=== PATIENT | male | born 1955 | race Caucasian/White ===

== ENCOUNTER → 2018-08-14 | Outpatient (CLI) | payer OTHER ==
[~2018-08-14] MED LIST: ALBUTEROL SULFATE 2.5 MG/3 ML NEBU. NEB ONE
--- NOTE | 2018-08-14 14:10 | RAD ---
Chest, 2 views, 08/14/2018: HISTORY: Shortness of breath, weakness There has been a previous median sternotomy. The heart size is within normal limits. There is mild tortuosity of the thoracic aorta. The pulmonary vascularity is normal. No pulmonary infiltrate is seen. There is no evidence of pleural fluid. There are mild scattered spurs in the spine. IMPRESSION: No acute cardiopulmonary abnormality is detected. Electronically signed by: Casey Singer MD (08/14/2018 2:07 PM) [facility]
== END | disposition home or self-care (01) ==
LOC: PF 07:46
PROVIDERS: ATTEND Surgery
DX: M46.04 Spinal enthesopathy, thoracic region (principal)
CPT/HCPCS: 71046; 94060; 94640; 94729; J7613

== ENCOUNTER → 2018-09-04 | Outpatient (CLI) | payer OTHER ==
--- NOTE | 2018-09-04 14:00 | RAD ---
Right knee, 2 views, 09/04/2018: HISTORY: Knee pain, disability determination The knee joint space is well preserved. No fracture or dislocation is identified. There is minimal degenerative change at the patellofemoral articulation. No joint effusion is evident. IMPRESSION: No acute right knee abnormality is detected. Electronically signed by: Casey Singer MD (09/04/2018 1:51 PM) [facility]
--- NOTE | 2018-09-04 14:00 | RAD ---
Lumbar spine, 2 views, 09/04/2018: HISTORY: Low back pain There is moderate disc space narrowing at multiple levels with vacuum disc phenomena. There is more extensive spurring and endplate sclerosis at L5-S1. Moderate scattered marginal spurs are present. A limbus type deformity is present along the anterosuperior corner of the L5 vertebral body. No recent fracture or subluxation is evident. There is mild facet joint arthropathy in the lower lumbar spine. Aortoiliac calcific plaquing is present. IMPRESSION: 1. Moderate multilevel degenerative change. 2. No acute bony abnormality is detected. Electronically signed by: Casey Singer MD (09/04/2018 1:53 PM) [facility]
== END | disposition home or self-care (01) ==
LOC: RAD 09:41
PROVIDERS: ATTEND Neuromusculoskeletal Medicine, Sports Medicine
DX: M47.896 Other spondylosis, lumbar region (principal); M17.11 Unilateral primary osteoarthritis, right knee
CPT/HCPCS: 72100; 73560